=== PATIENT | male | born 1950 | race Caucasian/White ===

== ENCOUNTER 2016-07-17 08:43 | Inpatient (IN) | payer MEDICARE, OTHER ==
[~2016-07-17 08:43] MED LIST: ACETAMINOPHEN325 M2 PO; ASCORBIC ACID500 M2 PO; ASPIRIN EC81 MG PO; CPAP; CPAP INH; CYCLOBENZAPRINE10 M1 PO; DAILY MULTIVIT1 EAC1 PO; ELIQUIS2.5 M1 PO; ELIQUIS5 M1 PO; FERROUS SULFAT325 MG PO; FISH OIL 1,0001 EA10 PO; FLECAINIDE ACET50 M1 PO; GLIPIZIDE5 M2 PO; GLUCOPHAGE850 M1 PO; GLUCOTROL5 M1 PO; LIPITOR40 M1 PO; LISINOPRIL2.5 M1 PO; LISINOPRIL20 M1 PO; LOPRESSOR50 M1 PO; METFORMIN HCL500 M2 PO; MILK OF MAGNESIA PO; MOBIC15 M2 PO; NO MEDS; OMEPRAZOLE20 M3 PO; OXYCODONE HCL5 M1 PO; PRINIVIL20 M1 PO; ROXICODONE5 M2 PO; SENOKOT-S TABL1 EACH PO; TOPROL XL50 M1 PO; TYLENOL325 M2 PO; ULTRAM50 M1 PO; VIAGRA100 M1 PO; VITAMIN D31000 UNI3 PO
[2016-07-17 09:42] LABS: INR 0.9 INR (0.9-1.1); PROTHROMBIN TIME 10.9 SECONDS (9.0-13.6)
[2016-07-18 05:48] LABS: EOS % 0.1 % (0-7); HCT-HEMATOCRIT 26.7 % (36.0-53.5); HGB-HEMOGLOBIN 9.4 gm/dl (13.5-17.0); IMMATURE GRANULOCYTES ABSOLUTE 0.02 tho/cmm (0-0.03); IMMATURE GRANULOCYTES PERCENT 0.2 % (0-0.3); LYMPH % 9.7 % (20-45); LYMPH ABSOLUTE COUNT 0.9 tho/cmm (0.8-4.5); MCH (MEAN CORPUSCULAR HGB) 30.6 pg (28.0-32.0); MCHC MEAN CORPUSCULAR HGB CONC 35.2 % (32.0-36.0); MONO % 6.1 % (0-12); MONOCYTE ABSOLUTE COUNT 0.6 tho/cmm (0.0-1.2); NEUTROPHIL ABSOLUTE COUNT 8.1 tho/cmm (1.6-8.0); NEUTROPHIL-AUTOMATED 8.1 tho/cmm (1.6-8.0); NEUTROPHILS % 83.9 % (40-80); PLATELET COUNT 144 tho/cmm (150-450); RED BLOOD COUNT 3.07 mil/cmm (4.40-5.70); RED CELL DISTRIBUTION WIDTH 14.1 % (12.4-16.4); WHITE BLOOD COUNT 9.7 tho/cmm (4.0-10.0)
[2016-07-18 05:59] LABS: ANION GAP 13 mmol/L (0-20); BLOOD UREA NITROGEN 35 mg/dl (6-24); CALCIUM 8.1 mg/dl (8.5-10.5); CARBON DIOXIDE-VENOUS 23 mmol/L (22-32); CHLORIDE 102 mmol/l (96-110); CREATININE 1.73 mg/dl (0.60-1.30); GLUCOSE 196 mg/dL (70-110); POTASSIUM 5.4 mmol/L (3.7-5.1); SODIUM 133 mmol/L (135-145); eGFR VALUE FOR BLACK 46 mL/Min
[2016-07-19 06:57] LABS: BASO % 0.4 % (0-2); EOS % 1.4 % (0-7); EOSINOPHIL ABSOLUTE COUNT 0.1 tho/cmm (0.0-0.7); HCT-HEMATOCRIT 25.5 % (36.0-53.5); HGB-HEMOGLOBIN 8.7 gm/dl (13.5-17.0); IMMATURE GRANULOCYTES ABSOLUTE 0.05 tho/cmm (0-0.03); IMMATURE GRANULOCYTES PERCENT 0.9 % (0-0.3); LYMPH % 21.4 % (20-45); LYMPH ABSOLUTE COUNT 1.2 tho/cmm (0.8-4.5); MCH (MEAN CORPUSCULAR HGB) 30.5 pg (28.0-32.0); MCHC MEAN CORPUSCULAR HGB CONC 34.1 % (32.0-36.0); MCV (MEAN CELL VOLUME) 89.5 fl (82.0-96.0); MEAN PLATELET VOLUME 9.1 cmc (9.4-12.4); MONO % 8.5 % (0-12); MONOCYTE ABSOLUTE COUNT 0.5 tho/cmm (0.0-1.2); NEUTROPHIL ABSOLUTE COUNT 3.7 tho/cmm (1.6-8.0); NEUTROPHIL-AUTOMATED 3.7 tho/cmm (1.6-8.0); NEUTROPHILS % 67.4 % (40-80); PLATELET COUNT 115 tho/cmm (150-450); RED BLOOD COUNT 2.85 mil/cmm (4.40-5.70); RED CELL DISTRIBUTION WIDTH 14.7 % (12.4-16.4); WHITE BLOOD COUNT 5.5 tho/cmm (4.0-10.0)
[2016-07-19 07:05] LABS: ANION GAP 12 mmol/L (0-20); BLOOD UREA NITROGEN 34 mg/dl (6-24); CALCIUM 8.1 mg/dl (8.5-10.5); CARBON DIOXIDE-VENOUS 26 mmol/L (22-32); CHLORIDE 110 mmol/l (96-110); CREATININE 1.37 mg/dl (0.60-1.30); GLUCOSE 128 mg/dL (70-110); SODIUM 143 mmol/L (135-145); eGFR VALUE FOR BLACK 61 mL/Min
[2016-07-19 07:09] LABS: POTASSIUM 4.8 mmol/L (3.7-5.1)
[2016-07-19] MEDS ORDERED: SENOKOT-S TABL1 EACH PO (11:46)
[2016-07-19] MEDS ORDERED: MILK OF MAGNESIA PO (11:46)
== END 2016-07-19 12:40 | DRG 470 ==
LOC: SHSB 08:43 → PACU 12:02 → 5EA 13:35
PROVIDERS: Family Medicine; ADMIT Orthopaedic Surgery Foot and Ankle Surgery
PROC: 0SRB02A Replacement of Left Hip Joint with Metal on Polyethylene Synthetic Substitute, Uncemented, Open Approach (ICD-10-PCS; principal; 2016-07-17)
PROC: 5A09357 Assistance with Respiratory Ventilation, Less than 24 Consecutive Hours, Continuous Positive Airway Pressure (ICD-10-PCS; 2016-07-17)
DX: M16.12 Unilateral primary osteoarthritis, left hip (principal); N17.9 Acute kidney failure, unspecified; E11.22 Type 2 diabetes mellitus with diabetic chronic kidney disease; I48.91 Unspecified atrial fibrillation; E87.5 Hyperkalemia; D62 Acute posthemorrhagic anemia; E66.9 Obesity, unspecified; E78.5 Hyperlipidemia, unspecified; I25.10 Atherosclerotic heart disease of native coronary artery without angina pectoris; G47.33 Obstructive sleep apnea (adult) (pediatric); Z79.01 Long term (current) use of anticoagulants; I12.9 Hypertensive chronic kidney disease with stage 1 through stage 4 chronic kidney disease, or unspecified chronic kidney disease; N18.3 Chronic kidney disease, stage 3 (moderate); G89.29 Other chronic pain; Z79.84 Long term (current) use of oral hypoglycemic drugs; Z87.891 Personal history of nicotine dependence; Z68.38 Body mass index [BMI] 38.0-38.9, adult
CPT/HCPCS: C1776; J0171; J0690; J1815; J1885; J2270; J2405; J2795; J7030